=== PATIENT | female | born 1965 | race Caucasian/White ===

== ENCOUNTER 2016-11-29 20:13 | Emergency (ER) | payer MEDICAID, OTHER ==
[~2016-11-29] VITALS: Ht 154.9 cm; Wt 64.0 kg
[2016-11-30 03:45] VITALS: BP 120/72
== END 2016-11-30 03:55 | disposition home or self-care (01) ==
LOC: ER 20:18
DX: S20.219A Contusion of unspecified front wall of thorax, initial encounter (principal); F17.210 Nicotine dependence, cigarettes, uncomplicated; V43.52XA Car driver injured in collision with other type car in traffic accident, initial encounter; Y93.89 Activity, other specified; Y92.488 Other paved roadways as the place of occurrence of the external cause
CPT/HCPCS: 71010; 99284; Z7610

== ENCOUNTER 2016-12-08 16:00 | Emergency (ER) | payer MEDICAID ==
[~2016-12-08] VITALS: Ht 157.5 cm; Wt 65.0 kg
[2016-12-08 17:03] VITALS: BP 112/73
[2016-12-08] MEDS ORDERED: KETOROLAC 30MG/ML VIAL IV STA (17:09)
[2016-12-08 18:05] LABS: *AMPHETAMINES SCREEN URINE NEGATIVE (NEGATIVE); *BARBITURATES SCREEN URINE NEGATIVE (NEGATIVE); *BENZODIAZEPINES SCREEN URINE NEGATIVE (NEGATIVE); *COCAINE SCREEN URINE NEGATIVE (NEGATIVE); CANNABINOID URINE SCREEN NEGATIVE (NEGATIVE); METHADONE URINE SCREEN NEGATIVE (NEGATIVE); OPIATES URINE SCREEN PRESUMTIVE POSITIVE (NEGATIVE); PHENCYCLIDINE URINE SCREEN NEGATIVE (NEGATIVE)
== END 2016-12-08 18:30 | disposition left against medical advice (07) ==
LOC: ER 18:16
DX: R07.89 Other chest pain (principal); J98.11 Atelectasis; F17.210 Nicotine dependence, cigarettes, uncomplicated
CPT/HCPCS: 80305; 93005; 99285